=== PATIENT | female | born 1985 | race Caucasian/White ===

== ENCOUNTER 2017-12-31 18:30 | Emergency (ER) | payer OTHER ==
[~2017-12-31] VITALS: Ht 162.6 cm; Wt 64.9 kg
[~2017-12-31 18:30] MED LIST: AFEDITAB CR30 MG PO; FOLIC ACID1 MG PO; IRON1 TAB PO
== END 2017-12-31 19:38 | disposition home or self-care (01) ==
LOC: ER 18:30
DX: H10.89 Other conjunctivitis (principal)

== ENCOUNTER 2018-08-21 12:18 | Outpatient (CLI) | payer OTHER | END 2018-08-21 13:21 | disposition home or self-care (01) | LOC: NST 12:18 | DX: Z34.83 Encounter for supervision of other normal pregnancy, third trimester (principal) ==

== ENCOUNTER 2018-09-14 12:51 | Outpatient (CLI) | payer OTHER | END 2018-09-14 13:43 | disposition home or self-care (01) | LOC: NST 12:51 | DX: Z34.83 Encounter for supervision of other normal pregnancy, third trimester (principal) ==

== ENCOUNTER 2018-09-28 08:51 | Outpatient (CLI) | payer OTHER | END 2018-09-28 09:44 | disposition home or self-care (01) | LOC: NST 08:51 | DX: Z34.83 Encounter for supervision of other normal pregnancy, third trimester (principal) ==

== ENCOUNTER 2018-10-05 09:23 | Outpatient (CLI) | payer OTHER | END 2018-10-05 10:12 | disposition home or self-care (01) | LOC: NST 09:23 | DX: Z34.83 Encounter for supervision of other normal pregnancy, third trimester (principal) ==

== ENCOUNTER 2018-10-12 09:43 | Outpatient (CLI) | payer OTHER | END 2018-10-12 11:54 | disposition home or self-care (01) | LOC: NST 09:43 | DX: Z34.83 Encounter for supervision of other normal pregnancy, third trimester (principal) ==

== ENCOUNTER 2018-10-14 12:08 | Outpatient (CLI) | payer OTHER | END 2018-10-14 12:30 | disposition home or self-care (01) | LOC: NST 12:08 | DX: Z34.83 Encounter for supervision of other normal pregnancy, third trimester (principal) ==

== ENCOUNTER 2018-10-16 12:20 | Inpatient (IN) | payer OTHER ==
[~2018-10-16] VITALS: Ht 162.6 cm; Wt 76.2 kg
[2018-10-16] MEDS ORDERED: BABY ASPRIN PO (13:06)
[2018-10-25] MEDS ORDERED: CHILDREN'S ASPI81 MG (08:42)
== END 2018-10-27 12:14 | disposition home or self-care (01) | DRG 788 ==
LOC: O/R 10-24 06:35 → OB/GYN 10-24 06:35
PROVIDERS: ADMIT Obstetrics & Gynecology
PROC: 4A1HXCZ Monitoring of Products of Conception, Cardiac Rate, External Approach (ICD-10-PCS; 2018-10-24)
PROC: 10D00Z1 Extraction of Products of Conception, Low, Open Approach (ICD-10-PCS; principal; 2018-10-24 12:15)
DX: O34.211 Maternal care for low transverse scar from previous cesarean delivery (principal); O75.82 Onset (spontaneous) of labor after 37 completed weeks of gestation but before 39 completed weeks gestation, with delivery by (planned) cesarean section; Z22.330 Carrier of Group B streptococcus; Z37.0 Single live birth; Z3A.37 37 weeks gestation of pregnancy

== ENCOUNTER 2018-10-19 07:40 | Outpatient (CLI) | payer OTHER ==
[~2018-10-19 07:40] MED LIST changes: +BABY ASPRIN PO
== END 2018-10-19 08:51 | disposition home or self-care (01) ==
LOC: NST 07:40
DX: Z34.83 Encounter for supervision of other normal pregnancy, third trimester (principal)

== ENCOUNTER 2018-10-22 09:04 | Outpatient (CLI) | payer OTHER | END 2018-10-22 09:59 | disposition home or self-care (01) | LOC: NST 09:04 | DX: Z34.83 Encounter for supervision of other normal pregnancy, third trimester (principal) ==

== ENCOUNTER 2020-07-19 14:23 | Emergency (ER) | payer OTHER ==
[~2020-07-19] VITALS: Ht 162.6 cm; Wt 68.0 kg
[~2020-07-19 14:23] MED LIST changes: +CHILDREN'S ASPI81 MG
== END 2020-07-19 21:23 | disposition home or self-care (01) ==
LOC: ER 14:23
DX: R11.11 Vomiting without nausea (principal); R10.84 Generalized abdominal pain; T61 Toxic effect of noxious substances eaten as seafood; Y92.89 Other specified places as the place of occurrence of the external cause; Z03.818 Encounter for observation for suspected exposure to other biological agents ruled out

== ENCOUNTER 2021-02-13 06:45 | Emergency (ER) | payer OTHER ==
[~2021-02-13] VITALS: Ht 162.6 cm; Wt 62.1 kg
== END 2021-02-13 19:39 | disposition home or self-care (01) ==
LOC: ER 06:45
DX: R11.11 Vomiting without nausea (principal); K29.70 Gastritis, unspecified, without bleeding

== ENCOUNTER 2023-09-17 19:14 | Emergency (ER) | payer OTHER ==
[~2023-09-17] VITALS: Ht 162.6 cm; Wt 57.2 kg
[2023-09-17 20:09] LABS: HEMATOCRIT 38.4 % (36.0-45.00); HEMOGLOBIN 13.1 g/dL (12.0-15.00); MEAN CELL VOLUME 92.2 fL (80.00-100.00); MEAN CORPUSCULAR HEMOGLOBIN 31.5 pg (27.00-32.0); MEAN CORPUSCULAR HGB CONC 34.2 g/dl (32.0-36.0); PLATELET COUNT 334 K/uL (150-450); RED BLOOD COUNT 4.17 M/uL (4.00-6.00)
[2023-09-17 20:26] LABS: ALBUMIN 3.9 gm/dL (3.4-5.0); BILIRUBIN TOTAL 0.19 mg/dL (0.3-1.2); CREATININE SERUM 0.87 mg/dL (0.55-1.02); GFR 72.11; GLOBULINA 3.4 G/DL (2.4-3.5); POTASSIUM 3.4 mEq/L (3.5-5.1); TOTAL PROTEIN 7.3 gm/dL (6.4-8.2)
[2023-09-18 10:45] LABS: URINE APPEARANCE Clear; URINE BACTERIA 4556.9 uL (0.0-1933); URINE BILIRRUBIN Negative (NEGATIVE); URINE BLOOD Negative; URINE COLOR Yellow; URINE EPITHELIAL CELLS 34.6 uL (0.0-38.8); URINE GLUCOSE Negative (NEGATIVE); URINE LEUKOCYTE Negative; URINE NITRATE Negative; URINE PROTEIN Negative (NEGATIVE); URINE RBC 23.5 uL (0.0-20.8); URINE UROBILINOGEN 0.2 E.U./dl; URINE WBC 6.1 uL (0.0-23.2)
== END 2023-09-18 12:45 | disposition home or self-care (01) ==
LOC: ER 19:15
PROVIDERS: General Practice
DX: R10.9 Unspecified abdominal pain (principal); R11.2 Nausea with vomiting, unspecified; Z20.822 Contact with and (suspected) exposure to COVID-19

== ENCOUNTER 2024-12-15 18:31 | Emergency (ER) | payer OTHER ==
[~2024-12-15] VITALS: Ht 162.6 cm; Wt 55.3 kg
[~2024-12-15 18:31] MED LIST changes: +PEPCID40 MG PO; +PROTONIX40 MG PO; +ZOFRAN8 MG PO
[2024-12-15] MEDS ORDERED: 0.9 % SODIUM CHLORIDE 1,000 ML IV STA (18:39)
[2024-12-15] MEDS ORDERED: FAMOTIDINE/PF 20 MG in 0.9 % SODIUM CHLORIDE 8 ML IV PUSH STA (18:40)
[2024-12-15 18:45] VITALS: BP 126/70; O2SAT 100
[2024-12-15] MEDS ORDERED: ONDANSETRON HCL 2 MG/ML VIAL IV ONE (18:45)
[2024-12-15] MEDS ORDERED: LORazepam 2 MG/ML VIAL IV PUSH ONE (18:45)
[2024-12-15] MEDS ORDERED: LORazepam 2 MG/ML VIAL ONE (19:12)
[2024-12-15 19:16] LABS: HEMATOCRIT 43.1 % (36.0-45.00); HEMOGLOBIN 14.6 g/dL (12.0-15.00); MEAN CELL VOLUME 95.8 fL (80.00-100.00); MEAN CORPUSCULAR HEMOGLOBIN 32.4 pg (27.00-32.0); MEAN CORPUSCULAR HGB CONC 33.8 g/dl (32.0-36.0); PLATELET COUNT 290 K/uL (150-450); RED CELL DISTRIBUTION WIDTH 13.1 % (11.5-14.5)
[2024-12-15 19:41] LABS: CALCIUM 9.2 mg/dL (8.5-10.1); CREATININE SERUM 0.81 mg/dL (0.55-1.02); GFR 77.92; POTASSIUM 3.24 mEq/L (3.5-5.1)
[2024-12-15] MEDS ORDERED: KETOROLAC TROMETHAMINE 30 MG VIAL ONE (19:49)
[2024-12-15] MEDS ORDERED: PROMETHAZINE HCL 50 MG/ML AMPUL IV ONE (21:30)
[2024-12-15] MEDS ORDERED: PROMETHAZINE HCL 50 MG/ML AMPUL IM ONE (21:54)
[2024-12-16] MEDS ORDERED: DIPHENHYDRAMINE HCL 50 MG/ML VIAL 1ML IV STA (00:59)
[2024-12-16] MEDS ORDERED: DIPHENHYDRAMINE HCL 50 MG/ML VIAL 1ML ONE (01:00)
[2024-12-16] MEDS ORDERED: KETOROLAC TROMETHAMINE 30 MG VIAL IV STA (02:27)
[2024-12-16] MEDS ORDERED: KETOROLAC TROMETHAMINE 30 MG VIAL ONE (02:45)
[2024-12-16] MEDS ORDERED: MORPHINE SULFATE 4 MG/ML VIAL IV STA (05:29)
== END 2024-12-16 12:03 | disposition home or self-care (01) ==
LOC: ER 18:31
PROVIDERS: Emergency Medicine
DX: N83.292 Other ovarian cyst, left side (principal); R11.2 Nausea with vomiting, unspecified; K21.9 Gastro-esophageal reflux disease without esophagitis